=== PATIENT | male | born 1950 | race Caucasian/White ===

== ENCOUNTER 2019-07-16 08:15 | Outpatient (RCR) | payer OTHER ==
[~2019-07-16] VITALS: Ht 180 cm; Wt 93.1 kg
[~2019-07-16 08:15] MED LIST: CHOL10007 PO; DOXA4TAB2 PO; MELO7.5T46 PO; OMG1KC PO; PANT40TA3 PO; PRAV40TA2 PO; QUIN1TAB25 PO; VIT1CAPS44 PO
== END 2019-07-16 14:48 | disposition home or self-care (01) ==
LOC: PREOP 08:15
PROVIDERS: ATTEND Internal Medicine
DX: Z01.818 Encounter for other preprocedural examination (principal); Z11.59 Encounter for screening for other viral diseases
CPT/HCPCS: 87635

== ENCOUNTER 2020-11-10 05:35 | Outpatient (RCR) | payer OTHER ==
[2020-11-06 14:13] LABS: BASOPHILS % (AUTO) 0 % (0-10); EOSINOPHILS # (AUTO) 0.1 10^3/uL (0.0-0.3); EOSINOPHILS % (AUTO) 2 % (0-10); HEMATOCRIT 38 % (40-54); HEMOGLOBIN 12.8 g/dL (13.3-17.7); LYMPHOCYTES # (AUTO) 1.7 10^3/uL (1.0-4.0); LYMPHOCYTES % (AUTO) 24 % (12-44); MEAN CORPUSCULAR HEMOGLOBIN 32 pg (25-34); MEAN CORPUSCULAR HGB CONC 34 g/dL (32-36); MEAN CORPUSCULAR VOLUME 95 fL (80-99); MEAN PLATELET VOLUME 9.8 fL (9.0-12.2); MONOCYTES # (AUTO) 0.7 10^3/uL (0.0-1.0); MONOCYTES % (AUTO) 10 % (0-12); NEUTROPHILS # (AUTO) 4.5 10^3/uL (1.8-7.8); NEUTROPHILS % (AUTO) 64 % (42-75); PLATELET COUNT 273 10^3/uL (130-400); WHITE BLOOD COUNT 7.1 10^3/uL (4.3-11.0)
[2020-11-06 14:34] LABS: CALCIUM 10.4 MG/DL (8.5-10.1); CREATININE SERUM 0.81 MG/DL (0.60-1.30)
[~2020-11-10] VITALS: Ht 180 cm; Wt 94.4 kg
[~2020-11-10 05:35] MED LIST changes: +DOXY50CA2 PO; -PANT40TA3 PO; +PANT40TA52 PO; +QUIN1TAB PO; -QUIN1TAB25 PO
== END 2020-11-10 16:09 | disposition home or self-care (01) ==
LOC: PREOP 05:35
PROVIDERS: ATTEND Otolaryngology Otolaryngology/Facial Plastic Surgery
DX: Z01.812 Encounter for preprocedural laboratory examination (principal); Z01.810 Encounter for preprocedural cardiovascular examination; J34.2 Deviated nasal septum; J34.3 Hypertrophy of nasal turbinates
CPT/HCPCS: 36415; 80048; 85025; 87081; 87635; 93005

== ENCOUNTER 2020-11-13 06:57 | Day surgery (SDC) | payer OTHER ==
[~2020-11-13] VITALS: Ht 180 cm; Wt 94.4 kg
[2020-11-13] VITALS (9 sets, daily range): BP systolic 101–156; BP diastolic 62–92
[2020-11-13] MEDS ORDERED: PHENYLEPHRINE 0.5% NASAL SPR (NEO-SYNEPHRINE) REG ONE (07:05)
[2020-11-13] MEDS ORDERED: COCAINE HCL 4% 2 ML SYR ONE (07:05)
[2020-11-13] MEDS ORDERED: LIDOCAINE/EPI 1%-1:100,000 (XYLOCAINE) 20ML ONE (07:05)
[2020-11-13] MEDS ORDERED: LACTATED RINGERS 1,000 ML IV PRN (07:30)
[2020-11-13] MEDS ORDERED: SEVOFLURANE (ULTANE) 15 ML INHAL SOLN ONE ×2 (07:49→08:27)
[2020-11-13] MEDS ORDERED: proPOfol 200 MG/20 ML (DIPRIVAN) VIAL IV ONE (07:49)
[2020-11-13] MEDS ORDERED: LIDOCAINE PF 2% 5 ML (XYLOCAINE) VIAL ONE (07:49)
[2020-11-13] MEDS ORDERED: fentaNYL INJ 100 MCG/2 ML AMP ONE (07:49)
[2020-11-13] MEDS ORDERED: ROCURONIUM 10 MG/ML 5 ML SYRINGE IV ONE (07:49)
[2020-11-13] MEDS ORDERED: ONDANSETRON 4 MG/2 ML (SDV) Z0FRAN ONE (07:49)
[2020-11-13] MEDS ORDERED: MIDAZOLAM 2 MG/2 ML (VERSED) VIAL ONE (07:49)
[2020-11-13] MEDS ORDERED: LIDOCAINE JELLY 2% 6 ML SYRINGE ONE (07:50)
--- NOTE | 2020-11-13 08:09 | Progress Note-Pre Operative ---
Pre-Operative Progress Note H&P Reviewed The H&P was reviewed, patient examined and no changes noted. Date Seen by Provider: Nov 13, 2020 Time Seen by Provider: 08:00 Date H&P Reviewed: Nov 13, 2020 Time H&P Reviewed: 08:00 Pre-Operative Diagnosis: Deviated Nasal Septum, Bilat Red of Inf Turbs CHONG HERNANDEZ MD Nov 13, 2020 08:09
[2020-11-13] MEDS ORDERED: BSS 15 ML ONE (08:22)
--- NOTE | 2020-11-13 09:10 | Progress Note-Post Operative ---
Post-Operative Progess Note Surgeon (s)/Subsea Engineer (s) Surgeon CHONG HERNANDEZ MD Subsea Engineer n/a Pre-Operative Diagnosis Deviated Nasal Septum, Bilat Red of Inf Turbs Post-Operative Diagnosis same Post-Op Procedure Note Date of Procedure: Nov 13, 2020 Name of Procedure Performed: Nasal Septoplasty, Bilateral Red of Inf Turbinates Description & Findings Description and Findings: n/a Anesthesia Type get Estimated Blood Loss minimal Packing none. Specimen(s) collected/removed nasal septum CHONG HERNANDEZ MD Nov 13, 2020 09:09
[2020-11-13] MEDS ORDERED: predniSONE 20 MG TAB PO ONE (09:15)
[2020-11-13] MEDS ORDERED: HYDROcodone/APAP 5 MG/325 MG (LORTAB) TAB PO PRN (09:15)
[2020-11-13] MEDS ORDERED: morphine INJ 10 MG/ML 1ML (SYR OR VIAL) IVP ONE (09:15)
[2020-11-13] MEDS ORDERED: D5 1/2 NS W/KCL 20 MEQ/L 1,000 ML IV SCH (09:15)
[2020-11-13] MEDS ORDERED: MEPERIDINE (DEMEROL) INJ 50 MG/ML IVP ONE (09:15)
[2020-11-13] MEDS ORDERED: ONDANSETRON 4 MG/2 ML (SDV) Z0FRAN IVP PRN (09:15)
[2020-11-13] MEDS ORDERED: PROMETHAZINE INJ 25 MG/ML (PHENERGAN) AMP IVP PRN (09:15)
[2020-11-13] MEDS ORDERED: fentaNYL INJ 100 MCG/2 ML AMP IVP ONE (09:15)
[2020-11-13] MEDS ORDERED: ACHD5005 PO (09:25)
[2020-11-13] MEDS ORDERED: AMOX-355 PO (09:25)
--- NOTE | 2020-11-13 13:10 | Anesthesia-General Post-Op ---
General Patient Condition Mental Status/LOC: Same as Preop Cardiovascular: Satisfactory Nausea/Vomiting: Absent Respiratory: Satisfactory Pain: Controlled Complications: Present (front tooth upon intial DL had a noticeable crack in it. documented and glidescope initiated. discussed with patient and dr shi. ) Post Op Complications Complications None Follow Up Care/Instructions Patient Instructions None needed. Anesthesia/Patient Condition Patient Condition Patient is doing well, no complaints, stable vital signs, no apparent adverse anesthesia problems. No complications reported per nursing. LEAH MCCULLOUGH CRNA Nov 13, 2020 13:10
== END 2020-11-13 10:45 | disposition home or self-care (01) ==
LOC: SDC 06:57
PROVIDERS: ATTEND Otolaryngology Otolaryngology/Facial Plastic Surgery
DX: J34.2 Deviated nasal septum (principal); J34.3 Hypertrophy of nasal turbinates; R09.81 Nasal congestion; I10 Essential (primary) hypertension; E78.5 Hyperlipidemia, unspecified; K21.9 Gastro-esophageal reflux disease without esophagitis; Z79.899 Other long term (current) drug therapy; Z87.891 Personal history of nicotine dependence